=== PATIENT | female | born 1950 | race American Indian/Alaskan Native ===

== ENCOUNTER 2016-11-17 11:34 | Outpatient (CLI) | payer MEDICARE ==
--- NOTE | 2016-11-17 14:37 | XRay Report ---
Bilateral wrists, 3 views each: Imaging of the left wrist demonstrates either an old chip fracture involving the distal radius or possibly a nonunited apophysis. There no acute fractures, displacements, or obvious articular abnormalities in either wrist. The bones appear relatively well-mineralized. No swelling identified. Impression: No acute findings. RIGHT HAND: The bony architecture is intact. Bony alignment is normal. No soft tissue abnormalities are seen. The joint spaces appear preserved. IMPRESSION: Normal right hand. RIGHT ANKLE: The bones are well mineralized with normal bony contours and joint alignment. No fractures or destructive changes are noted and the adjacent soft tissues are normal. IMPRESSION: Normal study.
--- NOTE | 2016-11-17 14:40 | Mammography Report ---
Screening mammogram: Routine views demonstrates asymmetrically positioned and heterogeneously dense fibroglandular pattern. Dunbar calcifications are distributed throughout both breasts. There are no suspicious masses nor is there any architectural distortion. CAD was not captured. Impression: Benign findings. Recommendation: Annual mammogram followup. BI-RADS CATEGORY: 2 = Benign ACR BI-RADS MAMMOGRAPHIC CODES: 0 = Needs additional imaging evaluation; 1 = Negative; 2 = Benign; 3 = Probably benign; 4 = Suspicious; 5 = Malignant; 6 = Known biopsy-proven malignancy COMMENT: 1. Dense breast tissue, i.e., adenosis, fibrocystic changes, etc., may obscure an underlying neoplasm. 2. Approximately 10% of cancers are not detected with mammography. 3. A negative mammography report should not delay biopsy if a clinically suspicious mass is present.
--- NOTE | 2016-11-17 15:02 | Mammography Report ---
BONE DENSITY STUDY: DEFINITIONS: BMD = Bone Mineral Density T-score = BMD related to mean peak bone mass of young adult (mean expressed in Standard Deviation) Z-score = Age matched BMD expressed in SD World Health Organization (WHO) Diagnostic Criteria Normal T-score > -1 SD Osteopenia T-score between -1 and -2.4 SD Osteoporosis T-score -2.5 SD or below FINDINGS: Average L1-L4 BMD is 0.666 with a T. value score of -3.5. The L3 BMD is 0.666 with a 2 day T score of -3.8. The average left hip BMD is 0.642 with a T. value score of -2.5. The femoral neck BMD is 0.671 with a T. value score of -1.6. IMPRESSION: The patient's T-score is diagnostic for osteoporosis and high relative risk for fracture. NOTE: BMD is not the only risk factor for fracture; also consider factors such as the patient's age, risk of falling, previous osteoporotic fracture, family history of osteoporotic fractures, current smoker, and low body weight. Galindo's triangle is a region of interest in femur, predominantly of trabecular bone. It is not a true anatomic site, and [facility] does not recommend its use clinically. RECOMMENDATION : Followup with referring physician for evaluation of her therapy.
== END 2016-11-17 11:35 | disposition home or self-care (01) ==
LOC: MAMMO 11:34
PROVIDERS: ATTEND Family Medicine
DX: Z12.39 Encounter for other screening for malignant neoplasm of breast (principal); Z13.820 Encounter for screening for osteoporosis; M81.0 Age-related osteoporosis without current pathological fracture; M79.642 Pain in left hand; M79.641 Pain in right hand; M25.532 Pain in left wrist; M25.531 Pain in right wrist; M25.572 Pain in left ankle and joints of left foot; M25.571 Pain in right ankle and joints of right foot
CPT/HCPCS: 73110; 73120; 73610; 77080; G0202; 77067